=== PATIENT | male | born 1940 | race Caucasian/White ===

== ENCOUNTER → 2017-08-30 10:26 | Outpatient (CLI) | payer OTHER, SELFPAY ==
--- NOTE | 2017-08-30 | DI.ECHO.S_ITS ---
[facility] +---------+ : : [address] : : : : [id number] : : : : Phone: [phone] Echocardiogram Report + + :Name: KAROL ENGLISH Study Date: 08/30/2017 Height: 73 in : :[facility] Weight: 206 lb : : Gender: Male BSA: 2.2 m2 : :: 1940 Age: 77 yrs BP: 120/58 mmHg: :Reason For Study: CAD : :Ordering Physician: Dr. Rangel : :Bryan Performed By: Halina Torres : :Referring: Joshua Moore : + + Interpretation Summary 1) Normal left ventricular thickness and size with normal function (EF 55- 60%). 2) Central is hypokinetic. 3) Mildly enlarged right ventricle with mildly reduced function. 4) Elevated pulmonary artery pressures, with systolic pulmonary artery pressure estimated at 50mmHg. Previous systolic pulmonary artery pressure was 38mmHg. 5) No significant valvular abnormalities. 6) Compared to the Echo done 12/11/2016, RV has enlarged in size and decreased in function due to worsening of pulmonary hypertension. Procedure: A two-dimensional transthoracic echocardiogram with color flow and Doppler was performed. The study quality was technically adequate. Comparison is made with the echocardiogram of 12-11-16. The patient was in normal sinus rhythm during the exam. Left Ventricle: The left ventricle is normal in size. Left ventricular wall thickness is mildly increased. The ejection fraction is estimated to be 55- 60%. There is apical septal wall akinesis. There is apical akinesis. Grade II diastolic dysfunction. Right Ventricle: The right ventricle is mildly dilated. Right ventricular systolic function is mildly reduced. Atria: The left atrium is moderately dilated. Right atrial size is normal. The interatrial septum is intact with no evidence for an atrial septal defect. Mitral Valve: The mitral valve leaflets appear mildly thickened, but open well. There is mild to moderate mitral annular calcification. There is mild mitral regurgitation. Aortic Valve: The aortic valve is trileaflet. The aortic valve opens well. The aortic valve is slightly calcified. There is no aortic valve stenosis. No aortic regurgitation is present. Tricuspid Valve: The tricuspid valve leaflets are thin and pliable. There is trace tricuspid regurgitation. The right ventricular systolic pressure is estimated at 50 mmHg assuming a right atrial pressure of 3 mm Hg. Pulmonic Valve: The pulmonic valve is not well seen, but is grossly normal. There is no pulmonic valvular regurgitation. Great Vessels: The aortic root is normal size. The ascending aorta is at the upper limits of normal in size. The IVC is of normal diameter and collapses greater than 50% with a sniff. This suggests a low right atrial pressure of 3 mm Hg. Pericardium/ Pleura There is no pericardial effusion. There is no pleural effusion. MMode/2D Measurements & Calculations LVIDd: 5.3 cm Ao root diam: 3.7 cm LVIDs: 3.4 cm Aortic Jxn: 3.1 cm FS: 35.8 % asc Aorta Diam: 3.5 cm EPSS: 0.59 cm Ao Arch Diam (Prox Trans): 3.2 cm IVSd: 1.2 cm LVPWd: 1.2 cm LV soliz. diameter/BSA (cm/m^2): 2.4 LV sys. diameter/BSA (cm/m^2): 1.6 LA dimension: 4.2 cm RA long axis: 5.0 cm LA A2 area: 25.7 cm2 RA area: 13.0 cm2 LA A4 area: 28.0 cm2 RA vol: 28.6 ml LA length (vol): 5.8 cm RA : 13.1 ml/m2 LA vol: 104.8 ml IVC diam: 1.2 cm LA vol index: 48.1 ml/m2 RVDd major: 6.0 cm RVD1 (basal): 4.0 cm RVD2 (mid): 3.2 cm Doppler Measurements & Calculations Ao V2 max: 151.8 cm/sec MV E max henok: 88.9 cm/sec Ao V2 mean: 100.7 cm/sec MV A max henok: 116.3 cm/sec Ao max P.2 mmHg MV E/A: 0.76 Ao mean P.8 mmHg Med Peak E' Henok: 5.3 cm/sec Ao V2 VTI: 35.2 cm E/E' med: 16.7 Lat Peak E' Henok: 8.1 cm/sec E/E' lat: 10.9 E/e' average: 13.8 MV dec time: 0.29 sec MV P1/2t: 86.7 msec TR max henok: 342.6 cm/sec MV P1/2t max henok: 89.1 cm/sec TR max P.0 mmHg MVA(P1/2t): 2.5 cm2 PA V2 max: 84.8 cm/sec PA V2 mean: 51.1 cm/sec PA mean P.3 mmHg PA Accel Time: 0.12 sec Reading Physician:02:25 PM
== END ==
PROVIDERS: PCP Family Medicine; Visit Provider Family Medicine
DX: I25.10 Atherosclerotic heart disease of native coronary artery without angina pectoris (principal)
CPT/HCPCS: 93306

== ENCOUNTER → 2017-10-08 11:02 | Outpatient (CLI) | payer OTHER, SELFPAY ==
--- NOTE | 2017-10-08 | DI.RAD.S_ITS ---
PROCEDURE: XR CHEST 2V INDICATIONS: shortness of breath TECHNIQUE: 2 views of the chest were acquired. COMPARISON: [facility], CHEST 2 VIEW, 11/20/2016, 12:11. [facility], CHEST 2 VIEW, 11/29/2016, 11:08. FINDINGS: Surgical changes and devices: None. Lungs and pleura: No pleural effusions or pneumothorax. There are diffuse bilateral interstitial opacities, some of which may be chronic interstitial disease however these appear slightly increased since 11/20/16. It would be difficult to exclude pulmonary edema or early bronchopneumonia in this setting. Mediastinum: Mediastinal contours are normal. Heart size is normal. Bones and chest wall: No suspicious bony abnormalities. Soft tissues appear unremarkable. IMPRESSION: Diffuse ill-defined bilateral widespread patchy ground glass and ill-defined opacities, which are minimally increased since 11/20/16. This could represent chronic interstitial disease although it difficult to exclude early pulmonary edema or bronchopneumonia in the setting, therefore recommend clinical correlation. No definite new focal consolidation. Dictated by: Kannan Jean M.D. on 10/08/2017 at 12:17 Approved by: Kannan Jean M.D. on 10/08/2017 at 12:19
--- NOTE | 2017-10-10 16:27 | PM.PFT.1 ---
Pulmonary Function Test Referral & Results Date Patient Seen: 10/08/17 Requesting provider: Fatuma Bazzi Results: The spirometry demonstrates an FVC of 2.57 L which is 56% of predicted. The FEV1 was measured at 2.23 L which is 60% of predicted. The FEV1/FVC ratio was 87 which is 120% of predicted. Following the administration of bronchodilator there was no appreciable change. Lung volumes show an SVC of 3.72 L which is 76% of predicted. The diffusing capacity was measured at 19.75 which is 54% of predicted. No hemoglobin value was provided, so no correction for potential anemia could be made, if appropriate. The maximum voluntary ventilation was slightly reduced. Interpretation: This study demonstrates moderate obstructive lung disease without evidence of benefit following bronchodilator administration. There is also mild restrictive lung disease present. There is also mild to moderate reduction in diffusing capacity suggesting an element of disease at the capillary alveolar level. Clinical correlation suggested
== END ==
PROVIDERS: PCP Family Medicine; Visit Provider Internal Medicine Critical Care Medicine
DX: R06.02 Shortness of breath (principal)
CPT/HCPCS: 71046; 94010; 94060; 94726; 94729

== ENCOUNTER → 2018-05-05 10:34 | Outpatient (CLI) | payer OTHER, SELFPAY ==
--- NOTE | 2018-05-08 13:30 | PM.PFT.1 ---
Pulmonary Function Test Referral & Results Date Patient Seen: 05/05/18 Requesting provider: Fatuma Bazzi Indication: R06.02 Results: The spirometry demonstrates an FVC of 2.14 L which is 47% of predicted. The FEV1 was measured at 1.93 L which is 59% of predicted. The FEV1/FVC ratio was 91 which is 127% of predicted. Following the administration of bronchodilator there was no appreciable change. Lung volumes show an SVC of 2.58 L which is 53% of predicted. The diffusing capacity was measured at 12.69 which is 34% of predicted. No hemoglobin value was provided, so no correction for potential anemia could be made, if appropriate. The maximum voluntary ventilation was slightly reduced Interpretation: This study demonstrates mild to moderate obstructive lung disease without evidence of benefit following bronchodilator, based on reduction in FEV1 There is more significant reduction in lung volumes suggesting more significant restrictive lung disease There is a severe reduction in diffusing capacity suggesting significant disease at the capillary alveolar level to the point where patient's likely hypoxic at times on room air Compared to PFTs performed in October 2017, current spirometry shows decline in lung volumes and FEV1 compared to previous study. Diffusing capacity is significantly reduced from previous as well Clinical correlation suggested
== END ==
PROVIDERS: PCP Family Medicine; Visit Provider Internal Medicine Critical Care Medicine
DX: R06.02 Shortness of breath (principal)
CPT/HCPCS: 94060; 94726; 94729

== ENCOUNTER 2018-06-06 08:38 | Emergency (ER) | payer OTHER, SELFPAY ==
[2018-06-06 08:57] VITALS: BP 140/75; PULSE 64; RESP 18; TEMP 37.3; O2SAT 95; BMI 25.9
--- NOTE | 2018-06-06 09:21 | ED.MALEGU ---
HPI - Male Genitourinary General Chief complaint: Urogenital-Male Stated complaint: BLOOD CLOTS IN URINE Time Seen by Provider: 06/06/18 09:21 Source: patient and family Mode of arrival: ambulatory History of Present Illness HPI Narrative: Patient is an 78-year-old male presenting with gross hematuria per . She states last night he was very confused in atypical for. This morning he urinated blood. He does have a history of prostate cancer which she received radiation for. He is on Coumadin after cardiac arrest in December of 2017. He had his INR checked this week she is not sure what it was. He is also finishing up course of prednisone for his pulmonary fibrosis. He has not had fever cough nausea vomiting. He has mild abdominal discomfort. The patient was diagnosed with pneumonia a couple weeks ago he was put on azithromycin 5 days PAC. states that the breathing and cough got much better afterwards and that seems to resolved. Related Data Home Medications Medication Instructions Recorded Confirmed CoQ-10 300 mg PO DAILY 06/06/18 06/06/18 allopurinol 100 mg PO BID 06/06/18 06/06/18 cholecalciferol (vitamin D3) 1,000 unit PO DAILY 06/06/18 06/06/18 [Vitamin D3] furosemide 40 mg PO DAILY PRN 06/06/18 06/06/18 glipizide 5 mg PO DAILY 06/06/18 06/06/18 metoprolol succinate 25 mg PO DAILY 06/06/18 06/06/18 prednisone See Rx Instructions .ROUTE .COMPLEX 06/06/18 06/06/18 rosuvastatin 10 mg PO DAILY 06/06/18 06/06/18 Previous Rx's Medication Instructions Recorded cephalexin [Keflex] 500 mg PO TID #21 cap 06/06/18 Allergies Allergy/AdvReac Type Severity Reaction Status Date / Time No Known Drug Allergies Allergy Verified 06/06/18 09:21 Review of Systems Review of Systems ROS Unobtainable: All systems reviewed & are unremarkable except as noted in HPI and below Constitutional Denies chills, Denies fatigue and Denies fever(s) Eyes Denies change in vision, Denies eye discharge, Denies irritation and Denies loss of vision Cardiovascular Denies chest pain, Denies irregular heart rhythm, Denies lightheadedness, Denies palpitations, Denies dyspnea, Denies dyspnea on exertion and Denies orthopnea Respiratory Denies cough, Denies dyspnea, Denies dyspnea on exertion and Denies wheezing Gastrointestinal Gastrointestinal: Denies abdominal pain, Denies change in bowel habits, Denies diarrhea, Denies nausea and Denies vomiting Genitourinary Reports as per HPI Musculoskeletal Denies back pain, Denies muscle weakness, Denies numbness and Denies tingling Integumentary/Breasts Denies pruritus, Denies erythema, Denies rash and Denies wounds Neurologic Denies loss of vision, Denies numbness and Denies tingling Comments: Confusion per Endocrine Denies fatigue and Denies palpitations Allergic/Immunologic Denies wheezing [facility] Social History Smoking Status: Former smoker Social History Smoking Status: Former smoker Exam Initial Vital Signs Initial Vital Signs: Vital Signs Temperature 99.2 F 06/06/18 08:57 Pulse Rate 64 06/06/18 08:57 Respiratory Rate 18 06/06/18 08:57 Blood Pressure 140/75 06/06/18 08:57 Pulse Oximetry 95 06/06/18 08:57 GENERAL: Elderly male alert and oriented HEENT: Head atraumatic,EOMI, pupils reactive, face symmetric neck is supple CARDIOVASCULAR: Regular rate and rhythm without murmurs, rubs or gallops. RESPIRATORY: Breath sounds equal bilaterally, no wheezes rales or rhonchi. ABDOMEN: Soft, nontender. Normoactive bowel sounds all 4 quadrants. No guarding or rebound. : No CVA tenderness: Gross blood in Cervantes catheter EXTREMITIES: Normal range of motion, no clubbing or edema. Neurovascularly intact NEUROLOGICAL: Alert and oriented x4.Normal gait and speech. Cranial nerves II through XII grossly intact. Moving all extremities SKIN: Warm, dry, no laceration, no petechiae, no rashes or lesions. Course Orders Ordered: ED Orders 06/06/18 09:45 Urinalysis and Microscopic Stat Urine Culture Stat 06/06/18 10:10 Complete Blood Count AUTO DIFF Stat Comprehensive Metabolic Panel Stat Lipase Stat Prothrombin Time INR Stat Discontinued Medications Sodium Chloride (Normal Saline 0.9%) 1,000 mls @ 150 mls/hr IV CONT KG Last Infusion: 06/06/18 14:50 Dose: 0 mls/hr Admin: 06/06/18 10:25 Dose: 150 mls/hr Vital Signs - 8 hr 06/06/18 08:57 06/06/18 11:05 06/06/18 12:32 Temperature 99.2 F Pulse Rate 64 52 L 66 Respiratory Rate 18 20 20 Blood Pressure 140/75 Blood Pressure [Right Arm] 138/72 146/71 H Pulse Oximetry 95 94 95 06/06/18 13:29 06/06/18 14:20 Temperature Pulse Rate 59 L 61 Respiratory Rate 21 18 Blood Pressure Blood Pressure [Right Arm] 150/71 H 146/71 H Pulse Oximetry 94 94 MDM - Male Genitourinary Lab Data Attestation: I reviewed the patient's lab results. Result diagrams: 06/06/18 10:10 06/06/18 10:10 Lab Results 06/06/18 06/06/18 06/06/18 Range/Units 09:45 10:10 10:10 WBC 13.9 H (4.5-11.0) X10^3/uL RBC 5.24 (4.5-5.9) X10^6/uL Hgb 15.8 (13.5-17.5) g/dL Hct 48.3 (41-53) % MCV 92.1 (80-100) fL MCH 30.2 (26-34) PG MCHC 32.7 (30-36) % RDW 15.1 H (11.6-14.8) % Plt Count 207 (150-400) X10^3/uL Neut % (Auto) 83.4 H (50-75) % Lymph % (Auto) 7.7 L (25-40) % Charles % (Auto) 8.0 (3-14) % Eos % (Auto) 0.6 L (2-4) % Baso % (Auto) 0.3 (0-2) % Neut # (Auto) 95386 H (1930-7918) /uL Lymph # (Auto) 1100 (7372-2206) /uL Charles # (Auto) 1100 H (0-900) /uL Eos # (Auto) 100 (0-450) /uL Baso # (Auto) 0 (0-100) /uL PT 18.4 H (10.1-12.7) SECONDS INR 1.6 H (0.9-1.3) Sodium (137-145) mmol/L Potassium (3.4-5.1) mmol/L Chloride (98-107) mmol/L Carbon Dioxide (22-32) mmol/L BUN (9-20) mg/dL Creatinine (0.66-1.25) mg/dL Estimated GFR (>60) mL/min BUN/Creatinine Ratio (6-22) Glucose (80-110) mg/dL Calcium (8.4-10.2) mg/dL Total Bilirubin (0.2-1.3) mg/dL AST (17-59) IU/L ALT (21-72) IU/L Alkaline Phosphatase (38-126) U/L Total Protein (6.3-8.2) g/dL Albumin (3.5-5.0) g/dL Globulin (1.7-4.1) g/dL Albumin/Globulin Ratio (1.0-2.8) Lipase (23-300) U/L Urine Color Red Urine Appearance Turbid Urine pH 5.5 (4.5-8.0) Ur Specific [place] 1.025 (1.000-1.035) Urine Protein 2+ H (Negative) Urine Glucose (UA) Trace H (Negative) g/dL Urine Ketones Negative (NEGATIVE) Urine Occult Blood 4+ H (Negative) Urine Nitrate Negative (Negative) Urine Bilirubin Negative (NEGATIVE) Urine Urobilinogen 0.2 (0.2) E.U./dL Ur Leukocyte Esterase Trace H (NEGATIVE) Urine RBC >100/hpf (0-5/HPF) Urine WBC 1-5/hpf (0-5/HPF) Urine Bacteria Many (>30) H (None) Ur Culture Indicated? Specimen cultured 06/06/18 Range/Units 10:10 WBC (4.5-11.0) X10^3/uL RBC (4.5-5.9) X10^6/uL Hgb (13.5-17.5) g/dL Hct (41-53) % MCV (80-100) fL MCH (26-34) PG MCHC (30-36) % RDW (11.6-14.8) % Plt Count (150-400) X10^3/uL Neut % (Auto) (50-75) % Lymph % (Auto) (25-40) % Charles % (Auto) (3-14) % Eos % (Auto) (2-4) % Baso % (Auto) (0-2) % Neut # (Auto) (6757-0542) /uL Lymph # (Auto) (0653-3173) /uL Charles # (Auto) (0-900) /uL Eos # (Auto) (0-450) /uL Baso # (Auto) (0-100) /uL PT (10.1-12.7) SECONDS INR (0.9-1.3) Sodium 136 L (137-145) mmol/L Potassium 4.2 (3.4-5.1) mmol/L Chloride 98 (98-107) mmol/L Carbon Dioxide 31 (22-32) mmol/L BUN 38 H (9-20) mg/dL Creatinine 1.30 H (0.66-1.25) mg/dL Estimated GFR 53.1 L (>60) mL/min BUN/Creatinine Ratio 29.2 H (6-22) Glucose 69 L (80-110) mg/dL Calcium 9.5 (8.4-10.2) mg/dL Total Bilirubin 1.0 (0.2-1.3) mg/dL AST 28 (17-59) IU/L ALT 45 (21-72) IU/L Alkaline Phosphatase 55 (38-126) U/L Total Protein 7.1 (6.3-8.2) g/dL Albumin 4.0 (3.5-5.0) g/dL Globulin 3.1 (1.7-4.1) g/dL Albumin/Globulin Ratio 1.3 (1.0-2.8) Lipase 325 H (23-300) U/L Urine Color Urine Appearance Urine pH (4.5-8.0) Ur Specific [place] (1.000-1.035) Urine Protein (Negative) Urine Glucose (UA) (Negative) g/dL Urine Ketones (NEGATIVE) Urine Occult Blood (Negative) Urine Nitrate (Negative) Urine Bilirubin (NEGATIVE) Urine Urobilinogen (0.2) E.U./dL Ur Leukocyte Esterase (NEGATIVE) Urine RBC (0-5/HPF) Urine WBC (0-5/HPF) Urine Bacteria (None) Ur Culture Indicated? MDM Narrative Medical decision making narrative: Apparently was manually irrigated at 3 L. Urine is still was quite dark been unable to see through the tube. A 3 way catheter was finally placed and irrigated. Urine turn pink able to see through the tube. A remained a light pink. Patient treated for UTI Cervantes catheter left in place. And patient instructed to follow up PCP and/or Urology. Discharge Plan Departure Patient Disposition: Home Clinical Impression: Urinary tract infection Qualifiers: Urinary tract infection type: acute cystitis Hematuria presence: with hematuria Qualified Code(s): N30.01 - Acute cystitis with hematuria Discharge Date/Time: 06/06/18 14:52 Interventions: ED Discharge Assessment Last Done: 06/06/18 14:51 Instructions: DI for Urinary Retention in Men Activity Restrictions/Additional Instructions: *You have been diagnosed with bladder infection *What to do: Keep Cervantes catheter in place. See Urology or PCP for removal *Continue to take medications as directed Keflex 500 mg 3 times a day for 7 dausy --> FAXED TO [facility] *Follow up with your primary care provider in 2-3 days *Return to ER if you should have increased confusion gross blood in Cervantes catheter decreased urine output or any new, worsening or concerning symptoms Prescriptions: New cephalexin [Keflex] 500 mg capsule 500 mg PO TID Qty: 21 RF: 0 No Action furosemide 40 mg Tablet 40 mg PO DAILY PRN (Reason: weight gain) RF: 0 prednisone 10 mg tablet See Rx Instructions .ROUTE .COMPLEX RF: 0 allopurinol 100 mg tablet 100 mg PO BID RF: 0 glipizide 2.5 mg tablet extended release 24hr 5 mg PO DAILY RF: 0 metoprolol succinate 25 mg tablet extended release 24 hr 25 mg PO DAILY RF: 0 cholecalciferol (vitamin D3) [Vitamin D3] 1,000 unit Capsule 1,000 unit PO DAILY RF: 0 rosuvastatin 10 mg tablet 10 mg PO DAILY RF: 0 CoQ-10 300 mg capsule 300 mg PO DAILY RF: 0 Referrals: Juan Carlos Adams MD [Primary Care Provider] -
[2018-06-06 10:07] LABS: Appearance Urine UA TURBID; Bilirubin Urine UA NEGATIVE (NEGATIVE); Color Urine UA RED; Glucose Urine UA TRACE g/dL (Negative); Ketones Urine UA NEGATIVE (NEGATIVE); Leukocyte Esterase Urine UA TRACE (NEGATIVE); Nitrite Urine UA NEGATIVE (Negative); Protein Urine UA 2+ (Negative); Specific Gravity Urine UA 1.025 (1.000-1.035); Urobilinogen Urine UA 0.2 E.U./dL (0.2); pH Urine UA 5.5 (4.5-8.0)
[2018-06-06 10:09] LABS: Occult Blood Urine UA 4+ (Negative)
[2018-06-06 10:10] LABS: Bacteria Urine Many (>30); Culture Indicated Urine Specimen Cultured; RBC Urine >100/HPF (0-5/HPF); WBC Urine 1-5/HPF (0-5/HPF)
[2018-06-06 10:24] LABS: INR 1.6 (0.9-1.3); Prothrombin Time 18.4 SECONDS (10.1-12.7)
[2018-06-06] MEDS: SODIUM CHLORIDE 0.9% 1,000 ML 150 ML IV (10:25)
[2018-06-06 10:28] LABS: Alanine Aminotransferase 45 IU/L (21-72); Albumin Globulin Ratio 1.3 (1.0-2.8); Alkaline Phosphatase 55 U/L (38-126); Aspartate Aminotransferase 28 IU/L (17-59); BUN Creatinine Ratio 29.2 (6-22); Blood Urea Nitrogen 38 mg/dL (9-20); Calcium 9.5 mg/dL (8.4-10.2); Carbon Dioxide 31 mmol/L (22-32); Chloride 98 mmol/L (98-107); Estimated Glomerular Filt Rate 53.1 mL/min (>60); Globulin 3.1 g/dL (1.7-4.1); Glucose 69 mg/dL (80-110); HEMOLYSIS < 15 (0-50); Lipase 325 U/L (23-300); Potassium 4.2 mmol/L (3.4-5.1); Sodium 136 mmol/L (137-145); Total Protein 7.1 g/dL (6.3-8.2)
[2018-06-06 10:29] LABS: Add Manual Diff / Slide Review NO; Basophils Absolute Auto 0 /uL (0-100); Basophils Percent Auto 0.3 % (0-2); Eosinophils Absolute Auto 100 /uL (0-450); Eosinophils Percent Auto 0.6 % (2-4); Hematocrit 48.3 % (41-53); Hemoglobin 15.8 g/dL (13.5-17.5); Lymphocytes Absolute Auto 1100 /uL (1100-4500); Lymphocytes Percent Auto 7.7 % (25-40); Mean Corpuscular HGB Conc 32.7 % (30-36); Mean Corpuscular Hemoglobin 30.2 PG (26-34); Mean Corpuscular Volume 92.1 fL (80-100); Monocytes Absolute Auto 1100 /uL (0-900); Neutrophils Absolute Auto 11600 /uL (1500-7000); Neutrophils Percent Auto 83.4 % (50-75); Platelet Count 207 X10^3/uL (150-400); Red Blood Cell Count 5.24 X10^6/uL (4.5-5.9); Red Cell Distribution Width 15.1 % (11.6-14.8); White Blood Cell Count 13.9 X10^3/uL (4.5-11.0)
[2018-06-06 11:05] VITALS: BP 138/72; PULSE 52; RESP 20; O2SAT 94
--- NOTE | 2018-06-06 12:17 | PC.NURSE ---
irrigated pelayo with 3000 cc of Normal Saline. pt had dark red hematuria with clots prior to irrigation. pt now has a few small clots with pink hematuria. Dr. Holland aware and will evaluate.
[2018-06-06 12:32] VITALS: BP 146/71; PULSE 66; RESP 20; O2SAT 95
--- NOTE | 2018-06-06 13:02 | PC.NURSE ---
[address] way pelayo cath removed. [address] pelayo 16f with 10cc balloon placed without difficulty. tolerated procedure well. pelayo connected to CBI-3L Normal Saline bag. draining light pink tinged urine at this time.
[2018-06-06 13:29] VITALS: BP 150/71; PULSE 59; RESP 21; O2SAT 94
[2018-06-06 14:20] VITALS: BP 146/71; PULSE 61; RESP 18; O2SAT 94
--- NOTE | 2018-06-06 14:49 | PC.NURSE ---
Education completed regarding leg bag/ pelayo cath use. verbalized understanding of catheter care w/ return demonstration.
== END 2018-06-06 14:52 | disposition home or self-care (01) ==
PROVIDERS: Emergency Provider Emergency Medicine; PCP Family Medicine
DX: N30.01 Acute cystitis with hematuria (principal)
CPT/HCPCS: 36591; 51700; 51705; 80053; 81001; 83690; 85025; 85610; 87086; 99285

== ENCOUNTER 2018-06-06 22:27 | Emergency (ER) | payer OTHER, SELFPAY ==
[2018-06-06 22:43] VITALS: BP 150/75; PULSE 53; RESP 20; TEMP 36.4; O2SAT 90
--- NOTE | 2018-06-06 22:49 | ED.MALEGU ---
HPI - Male Genitourinary General Chief complaint: Urogenital-Male Stated complaint: CLUGGED CATH Time Seen by Provider: 06/06/18 22:31 Source: patient Mode of arrival: ambulatory Limitations: no limitations History of Present Illness HPI Narrative: Patient is an 78-year-old male who was seen here earlier today for urinary retention. He had a catheter placed. Was discharged home. He returns because the catheter does not seem to be draining. Denies back pain. Denies fevers. Related Data Home Medications Medication Instructions Recorded Confirmed CoQ-10 300 mg PO DAILY 06/06/18 06/06/18 allopurinol 100 mg PO BID 06/06/18 06/06/18 cholecalciferol (vitamin D3) 1,000 unit PO DAILY 06/06/18 06/06/18 [Vitamin D3] furosemide 40 mg PO DAILY PRN 06/06/18 06/06/18 glipizide 5 mg PO DAILY 06/06/18 06/06/18 metoprolol succinate 25 mg PO DAILY 06/06/18 06/06/18 prednisone See Rx Instructions .ROUTE .COMPLEX 06/06/18 06/06/18 rosuvastatin 10 mg PO DAILY 06/06/18 06/06/18 Previous Rx's Medication Instructions Recorded cephalexin [Keflex] 500 mg PO TID #21 cap 06/06/18 Allergies Allergy/AdvReac Type Severity Reaction Status Date / Time No Known Drug Allergies Allergy Verified 06/06/18 22:46 Review of Systems Constitutional Denies fever(s) and Denies headache(s) ENT Ears, Nose, Mouth, and Throat: Denies headache(s) Cardiovascular Denies chest pain and Denies dyspnea Respiratory Denies dyspnea Gastrointestinal Gastrointestinal: Denies abdominal pain Genitourinary Comments: Urinary catheter not draining Musculoskeletal Denies myalgias and Denies arthralgias Integumentary/Breasts Denies rash Neurologic Denies headache(s) Hematologic/Lymphatic Denies easy bleeding and Denies easy bruising [facility] Medical History Hypertension (Acute) Social History Smoking Status: Former smoker Social History Smoking Status: Former smoker Exam Initial Vital Signs Initial Vital Signs: Vital Signs Temperature 97.5 F L 06/06/18 22:43 Pulse Rate 53 L 06/06/18 22:43 Respiratory Rate 20 06/06/18 22:43 Blood Pressure 150/75 H 06/06/18 22:43 Pulse Oximetry 90 L 06/06/18 22:43 Const General: cooperative, healthy appearing, comfortable, well developed, well groomed and No acute distress Orientation: alert, awake and oriented x3 HENMT Head: normal to inspection and normocephalic Resp Effort & Inspection: normal respiratory effort Auscultation: clear to auscultation bilaterally Cardio Rate: regular rate Rhythm: regular rhythm Pulses: radial pulses present GI Inspection: non-distended Palpation: soft Other: Cervantes catheter in place Skin Lesions: no lesions Rashes: no rashes Neuro General: alert, awake and oriented x3 Extrem General: normal to inspection and capillary refill normal Psych Appearance: grossly normal and well kempt Course Vital Signs - 8 hr 06/06/18 22:43 06/06/18 23:27 Temperature 97.5 F L Pulse Rate 53 L 51 L Respiratory Rate 20 18 Blood Pressure 150/75 H Blood Pressure [Left Arm] 130/67 Pulse Oximetry 90 L 93 MDM - Male Genitourinary MDM Narrative Medical decision making narrative: Cervantes catheter was flushed and a small clot did come out. It started draining afterwards. Patient stated he felt better. He is already on antibiotics for urinary tract infection. We did discuss the reasoning for the hematuria. I do suspect that it is irritation from the Cervantes catheter. We discussed return precautions. He is going to follow up with his primary care doctor. He expressed understanding and agreement plan. Discharge Plan Departure Patient Disposition: Home Clinical Impression: Hematuria Qualifiers: Hematuria type: unspecified type Qualified Code(s): R31.9 - Hematuria, unspecified Cervantes catheter problem Qualifiers: Encounter type: initial encounter Qualified Code(s): T83.9XXA - Unspecified complication of genitourinary prosthetic device, implant and graft, initial encounter Discharge Date/Time: 06/07/18 00:00 Interventions: ED Discharge Assessment Last Done: 06/06/18 23:46 Instructions: How to Care for Your Cervantes Catheter -- Male Activity Restrictions/Additional Instructions: Sure to keep all of your scheduled medical appointments. Continue all of your medications as directed. Call your primary care doctor for follow-up. Return to the emergency department for any new or worsening symptoms Prescriptions: No Action furosemide 40 mg Tablet 40 mg PO DAILY PRN (Reason: weight gain) RF: 0 prednisone 10 mg tablet See Rx Instructions .ROUTE .COMPLEX RF: 0 allopurinol 100 mg tablet 100 mg PO BID RF: 0 glipizide 2.5 mg tablet extended release 24hr 5 mg PO DAILY RF: 0 metoprolol succinate 25 mg tablet extended release 24 hr 25 mg PO DAILY RF: 0 cholecalciferol (vitamin D3) [Vitamin D3] 1,000 unit Capsule 1,000 unit PO DAILY RF: 0 rosuvastatin 10 mg tablet 10 mg PO DAILY RF: 0 CoQ-10 300 mg capsule 300 mg PO DAILY RF: 0 cephalexin [Keflex] 500 mg capsule 500 mg PO TID Qty: 21 RF: 0 Referrals: Juan Carlos Adams MD [Primary Care Provider] -
[2018-06-06 23:27] VITALS: BP 130/67; PULSE 51; RESP 18; O2SAT 93
== END 2018-06-07 | disposition home or self-care (01) ==
PROVIDERS: Emergency Provider Emergency Medicine; PCP Family Medicine
DX: T83.9XXA Unspecified complication of genitourinary prosthetic device, implant and graft, initial encounter (principal); R33.9 Retention of urine, unspecified; N30.01 Acute cystitis with hematuria
CPT/HCPCS: 36591; 51700; 51705; 51798; 80053; 81001; 83690; 85025; 85610; 87086; 99283; 99285

== ENCOUNTER 2018-06-08 10:03 | Emergency (ER) | payer OTHER, SELFPAY ==
[2018-06-08 10:13] VITALS: BP 138/72; PULSE 60; RESP 20; TEMP 36.2; O2SAT 94; BMI 25.9
--- NOTE | 2018-06-08 10:15 | ED.MALEGU ---
HPI - Male Genitourinary General Chief complaint: Urogenital-Male Stated complaint: CATHETER ISSUES Time Seen by Provider: 06/08/18 10:15 Source: patient Mode of arrival: ambulatory Limitations: no limitations History of Present Illness HPI Narrative: The patient has a history of prostate cancer. He has previously undergone radiation therapy. He has had no surgery. He has no history of urinary retention. Three days ago he was diagnosed with UTI with retention. He required a Cervantes. He has had issues with hematuria, clots and obstruction. He has had no urine out of the Cervantes over the last several hours. He is feeling mild stomach discomfort. He has had no nausea, vomiting, fever or chills. Related Data Home Medications Medication Instructions Recorded Confirmed CoQ-10 300 mg PO DAILY 06/06/18 06/06/18 allopurinol 100 mg PO BID 06/06/18 06/06/18 cholecalciferol (vitamin D3) 1,000 unit PO DAILY 06/06/18 06/06/18 [Vitamin D3] furosemide 40 mg PO DAILY PRN 06/06/18 06/06/18 glipizide 5 mg PO DAILY 06/06/18 06/06/18 metoprolol succinate 25 mg PO DAILY 06/06/18 06/06/18 prednisone See Rx Instructions .ROUTE .COMPLEX 06/06/18 06/06/18 rosuvastatin 10 mg PO DAILY 06/06/18 06/06/18 Previous Rx's Medication Instructions Recorded cephalexin [Keflex] 500 mg PO TID #21 cap 06/06/18 Allergies Allergy/AdvReac Type Severity Reaction Status Date / Time No Known Drug Allergies Allergy Verified 06/08/18 10:13 Review of Systems Constitutional Reports system reviewed and no additional complaints, except as docu, Denies chills, Denies fatigue and Denies fever(s) Cardiovascular Denies chest pain, Denies palpitations, Denies dyspnea and Reports dyspnea on exertion Respiratory Denies cough, Denies dyspnea, Reports dyspnea on exertion and Denies wheezing Gastrointestinal Gastrointestinal: Denies abdominal pain, Denies change in bowel habits, Denies diarrhea, Denies nausea and Denies vomiting Genitourinary Denies hematuria, Denies flank pain and Reports other (Urinary retention. Urine leaking around the Cervantes.) Musculoskeletal Denies muscle weakness and Denies numbness Integumentary/Breasts Denies pruritus, Denies erythema and Denies rash Neurologic Denies numbness Endocrine Denies fatigue and Denies palpitations Allergic/Immunologic Denies wheezing PFSH Medical History Hypertension (Acute) Social History Smoking Status: Former smoker Social History Smoking Status: Former smoker Exam Initial Vital Signs Initial Vital Signs: Vital Signs Temperature 97.1 F L 06/08/18 10:13 Pulse Rate 60 06/08/18 10:13 Respiratory Rate 20 06/08/18 10:13 Blood Pressure 138/72 06/08/18 10:13 Pulse Oximetry 94 06/08/18 10:13 Course Course Narrative: The Cervantes was changed by his nurse. A Cervantes was placed with a 30 millimeter ball. He is draining clear yellow urine without blood clots now. He is in no discomfort. Vital Signs - 8 hr 06/08/18 10:13 06/08/18 12:50 Temperature 97.1 F L Pulse Rate 60 65 Respiratory Rate 20 16 Blood Pressure 138/72 Blood Pressure [Left Arm] 121/64 Pulse Oximetry 94 95 Discharge Plan Departure Clinical Impression: Acute urinary retention Cervantes catheter problem Qualifiers: Encounter type: sequela Qualified Code(s): T83.9XXS - Unspecified complication of genitourinary prosthetic device, implant and graft, sequela Instructions: DI for Urinary Tract Infection (UTI), DI for Urinary Retention in Men Activity Restrictions/Additional Instructions: Take the medications as prescribed. Be sure you are drinking plenty of water. Stay well hydrated. Follow-up with her doctor this coming week for recheck. Talked to her doctor about a referral to Urology. Return to the ER as needed. I have provided with the name of a local urologist. Prescriptions: No Action furosemide 40 mg Tablet 40 mg PO DAILY PRN (Reason: weight gain) RF: 0 prednisone 10 mg tablet See Rx Instructions .ROUTE .COMPLEX RF: 0 allopurinol 100 mg tablet 100 mg PO BID RF: 0 glipizide 2.5 mg tablet extended release 24hr 5 mg PO DAILY RF: 0 metoprolol succinate 25 mg tablet extended release 24 hr 25 mg PO DAILY RF: 0 cholecalciferol (vitamin D3) [Vitamin D3] 1,000 unit Capsule 1,000 unit PO DAILY RF: 0 rosuvastatin 10 mg tablet 10 mg PO DAILY RF: 0 CoQ-10 300 mg capsule 300 mg PO DAILY RF: 0 cephalexin [Keflex] 500 mg capsule 500 mg PO TID Qty: 21 RF: 0 Referrals: Donny Mercado MD [Physician] - Juan Carlos Adams MD [Primary Care Provider] -
[2018-06-08 12:50] VITALS: BP 121/64; PULSE 65; RESP 16; O2SAT 95
== END 2018-06-08 14:01 | disposition home or self-care (01) ==
PROVIDERS: Emergency Provider Emergency Medicine; PCP Family Medicine
DX: R33.8 Other retention of urine (principal); T83.9XXS Unspecified complication of genitourinary prosthetic device, implant and graft, sequela
CPT/HCPCS: 51701; 51705; 51798; 99282; 99283

== ENCOUNTER → 2018-06-15 15:07 | Outpatient (REF) | payer OTHER, SELFPAY ==
[2018-06-15 15:19] LABS: Appearance Urine UA SL CLOUDY; Bilirubin Urine UA NEGATIVE (NEGATIVE); Color Urine UA YELLOW; Glucose Urine UA NEGATIVE (Negative); Ketones Urine UA TRACE (NEGATIVE); Leukocyte Esterase Urine UA NEGATIVE (NEGATIVE); Nitrite Urine UA NEGATIVE (Negative); Occult Blood Urine UA 3+ (Negative); Protein Urine UA 1+ (Negative); Specific Gravity Urine UA 1.025 (1.000-1.035); Urobilinogen Urine UA 0.2 E.U./dL (0.2)
[2018-06-15 15:36] LABS: RBC Urine 10-30/HPF (0-5/HPF)
[2018-06-15 15:37] LABS: Bacteria Urine Few (2-10); Culture Indicated Urine Specimen Cultured; Squamous Epithelial Cell Urine 0-1 /HPF; WBC Urine 5-10/HPF (0-5/HPF)
== END ==
LOC: LAB 15:07
PROVIDERS: PCP Family Medicine; Visit Provider Hospitalist
DX: N39.0 Urinary tract infection, site not specified (principal); R50.9 Fever, unspecified
CPT/HCPCS: 81001; 87086

== ENCOUNTER → 2018-06-16 07:14 | Outpatient (REF) | payer OTHER, SELFPAY ==
[2018-06-16 08:04] LABS: INR 3.2 (0.9-1.3); Prothrombin Time 37.9 SECONDS (10.1-12.7)
[2018-06-16 08:05] LABS: Add Manual Diff / Slide Review NO; Basophils Absolute Auto 0 /uL (0-100); Basophils Percent Auto 0.3 % (0-2); Eosinophils Absolute Auto 100 /uL (0-450); Eosinophils Percent Auto 1.2 % (2-4); Hematocrit 46.2 % (41-53); Hemoglobin 15.2 g/dL (13.5-17.5); Lymphocytes Absolute Auto 600 /uL (1100-4500); Lymphocytes Percent Auto 5.7 % (25-40); Mean Corpuscular HGB Conc 32.8 % (30-36); Mean Corpuscular Hemoglobin 30.3 PG (26-34); Mean Corpuscular Volume 92.3 fL (80-100); Monocytes Absolute Auto 600 /uL (0-900); Monocytes Percent Auto 6.5 % (3-14); Neutrophils Absolute Auto 8600 /uL (1500-7000); Neutrophils Percent Auto 86.3 % (50-75); Platelet Count 171 X10^3/uL (150-400); Red Blood Cell Count 5.01 X10^6/uL (4.5-5.9); Red Cell Distribution Width 14.8 % (11.6-14.8)
[2018-06-16 08:10] LABS: Blood Urea Nitrogen 24 mg/dL (9-20); Calcium 8.6 mg/dL (8.4-10.2); Carbon Dioxide 30 mmol/L (22-32); Chloride 90 mmol/L (98-107); Estimated Glomerular Filt Rate > 60.0 mL/min (>60); Glucose 85 mg/dL (80-110); HEMOLYSIS < 15 (0-50); Potassium 3.9 mmol/L (3.4-5.1); Sodium 130 mmol/L (137-145)
[2018-06-16 14:19] LABS: Uric Acid 4.1 mg/dL (3.5-8.5)
== END ==
LOC: LAB 07:14
PROVIDERS: PCP Family Medicine; Visit Provider Hospitalist
DX: N39.0 Urinary tract infection, site not specified (principal); I25.2 Old myocardial infarction
CPT/HCPCS: 36415; 80048; 84550; 85025; 85610

== ENCOUNTER → 2018-06-18 08:35 | Outpatient (REF) | payer OTHER, SELFPAY ==
[2018-06-18 09:16] LABS: Hemoglobin A1C% w Est Avg Glu 6.6 % (4.0-6.0)
== END ==
LOC: LAB 08:35
PROVIDERS: PCP Family Medicine; Visit Provider Hospitalist
DX: Z13.1 Encounter for screening for diabetes mellitus (principal)
CPT/HCPCS: 36415; 83036